=== PATIENT | male | born 1990 | race Caucasian/White ===

== ENCOUNTER 2016-12-23 19:01 | Emergency (ER) | payer SELFPAY ==
[~2016-12-23] VITALS: Ht 172.7 cm; Wt 77.1 kg
[~2016-12-23 19:01] MED LIST: ARPZ30T PO; BSP5T PO; HYDR-757 PO; HYDR1TAB PO; METH4TAB PO; MPR22T TP; NAPR500T PO; PALI9TAB PO; QUET150T PO; QUET200T PO; SULF1TAB35 PO; SULF1TAB38 PO
--- OUTSIDE RECORDS SUMMARY | 2016-12-23 19:06 | XMS REPORT | Continuity of Care Document ---
Author Author [facility] Address Unknown Phone Unavailable Allergies Active Description Code Type Severity Reaction Onset Reported/Identified Relationship to Patient Clinical Status Yes No Known Drug Allergies [id number] Drug Allergy Mild N/A 04/29/2009 Yes ANTIHISTAMINES ANTIHISTAMINES Unknown N/A 08/27/2015 Yes DECONGESTANTS DECONGESTANTS Unknown N/A 08/27/2015 Medications Problems Date Dx Coded Attending Type Code Diagnosis Diagnosed By 07/07/2010 Ot 922.1 07/07/2010 Ot 959.11 07/07/2010 Ot E000.8 07/07/2010 Ot E849.0 07/07/2010 Ot E881.0 07/09/2010 DARCY AHRMAN APRN 922.1 CONTUSION OF TRUNK, CHEST WALL 07/09/2010 DARCY HARMAN APRN E882 ACCIDENTAL FALL FROM OR OUT OF BUILDING OR OTHER STRUCTURE 07/17/2010 Ot 305.00 07/15/2013 TISH CARPENTER DO Ot 682.3 CELLULITIS OF ARM 07/15/2013 TISH CARPENTER DO Ot 782.2 LOCAL SUPRFICIAL SWELLNG 10/23/2014 FRANCESCO ANTOINE APRN Ot 787.01 NAUSEA WITH VOMITING 10/23/2014 FRANCESCO ANTOINE APRN Ot 787.03 VOMITING ALONE 08/27/2015 TISH CARPENTER DO Ot L50.9 URTICARIA, UNSPECIFIED 12/26/2015 DARIO MCCORMICK Ot L03.113 CELLULITIS OF RIGHT UPPER LIMB 03/01/2016 FRANCESCO ANTOINE APRN Ot L03.011 CELLULITIS OF RIGHT FINGER 03/02/2016 FRANCESCO ANTOINE APRN Ot L03.011 CELLULITIS OF RIGHT FINGER 03/04/2016 LUCIAN MCKEON MD Ot F17.210 NICOTINE DEPENDENCE, CIGARETTES, UNCOMPL 03/04/2016 LUCIAN MCKEON MD Ot J45.909 UNSPECIFIED ASTHMA, UNCOMPLICATED 03/04/2016 MIKE SAHU, LUCIAN Larry Ot L03.011 CELLULITIS OF RIGHT FINGER Procedures Results Encounters ACCT No. Visit Date/Time Discharge Status Pt. Type Provider Facility Loc./Unit Complaint [id number] 05/12/2011 14:13:00 05/12/2011 23: 59:59 CLS Outpatient GHAZAL COLEMAN, DARCY Monroy
--- NOTE | 2016-12-23 19:41 | Diagnostic Imaging Report ---
TECHNIQUE: Multiple contiguous axial images were obtained through the chest without the use of intravenous contrast. INDICATION: [place] food gets stuck in the throat or chest while eating approximately 1 hour ago. EXAMINATION: CT of the chest without contrast, 12/23/2016. FINDINGS: There is no pneumothorax. No pericardial or pleural effusions are seen. The osseous structures are intact and unremarkable. Within the visualized esophagus, air is noted throughout the mid and distal esophagus. No definite filling defects are appreciated within the course of visualized esophagus. Mediastinal structures appear unremarkable. Mild increased density in the precarinal region most likely residual thymic tissue. The visualized upper abdominal structures are grossly unremarkable. IMPRESSION: 1. No obstructive lesions visualized on this noncontrast examination. Air, however, does somewhat distend the mid and distal esophagus perhaps due to reflux. 2. Other incidental findings as discussed above. Dictated by: Dictated on workstation # [id number]
--- NOTE | 2016-12-23 19:42 | Diagnostic Imaging Report ---
INDICATION: Patient was eating and felt like food was getting stuck for one hour. COMPARISON STUDIES: None. FINDINGS: Noncontrast CT scan of the neck with coronal reformats demonstrates normal appearance of the airway. Some air is present within the esophagus without any significant dilatation. The pharynx is clear. Cords appear normal. No inflammatory changes are present. There is no abnormal adenopathy. The osseous structures appear normal. IMPRESSION: Essentially normal CT scan of the neck without contrast. Some air is present in the esophagus without dilatation. This is most likely due to normal swallowing. Dictated by: Dictated on workstation # [id number]
--- NOTE | 2016-12-23 19:56 | ED EENT ---
History of Present Illness General Chief Complaint: Foreign Body Stated Complaint: FOREIGN BODY Nursing Triage Note: patient reports eating ribs and believes he might have got a bone stuck in throat. patient reports being able to swallow water without difficulty Source: patient History of Present Illness Time seen by provider: 19:09 Initial Comments STATES HE WAS EATING RIBS AND FELT LIKE SOMETHING GOT STUCK IN HIS THROAT-- OCCURRED 1 HOUR AGO NO DIFFICULTY SWALLOWING WATER OR SALIVA AND NO PROBLEMS BREATHING NO HISTORY OF SIMILAR NO RECENT ILLNESS OR FEVER PCP: [facility] Allergies and Home Medications Allergies Uncoded Allergies: ANTIHISTAMINES (Adverse Reaction, Unknown, 08/27/15) DECONGESTANTS (Adverse Reaction, Unknown, 08/27/15) Home Medications No Active Prescriptions or Reported Meds Review of Systems Constitutional: no symptoms reported Mouth: no symptoms reported Throat: see HPI Respiratory: no symptoms reported Cardiovascular: no symptoms reportedNo chest pain Gastrointestinal: no symptoms reportedNo abdominal pain Musculoskeletal: no symptoms reported Skin: no symptoms reported Neurological: Anxiety Hematologic/Lymphatic: No Symptoms Reported Immunological/Allergic: no symptoms reported Past Rtyjclk-Rjcxlp-Uuvnwi Hx Patient Social History Alcohol Use: Occasionally Uses Recreational Drug Use: Yes (METH, LSD, THC--DENIES IV USE) Smoking Status: Current Everyday Smoker (> 1 PPD) Type Used: Cigarettes 2nd Hand Smoke Exposure: No Recent Foreign Travel: No Contact w/Someone Who Travel: No Recent Infectious Disease Expo: No Recent Hopitalizations: No Immunizations Up To Date Tetanus Booster (TDap): Less than 5yrs Date of Influenza Vaccine: Oct 15, 2012 Seasonal Allergies Seasonal Allergies: Yes Surgeries HX Surgeries: Yes (ABSCESS OF RIGHT THUMB I&D) Surgeries: Appendectomy, Tonsillectomy Respiratory Hx Respiratory Disorders: Yes Respiratory Disorders: Asthma Cardiovascular Hx Cardiac Disorders: No Neurological Hx Neurological Disorders: No Reproductive System Hx Reproductive Disorders: No Sexually Transmitted Disease: No Genitourinary Hx Genitourinary Disorders: No Gastrointestinal Hx Gastrointestinal Disorders: No Musculoskeletal Hx Musculoskeletal Disorders: No Endocrine Hx Endocrine Disorders: No HEENT HX ENT Disorders: No Cancer Hx Cancer: No Psychosocial Hx Psychiatric Problems: Yes Behavioral Health Disorders: Schizophrenia Integumentary HX Skin/Integumentary Disorder: Yes (HIVES-UNKNOWN CAUSE; CELLULITIS/ABSCESSES- -+ MRSA) Blood Transfusions Hx Blood Disorders: No Adverse Reaction to a Blood Tr: No Family Medical History Significant Family History: No Pertinent Family Hx Physical Exam Vital Signs Vital Sign - Last 12Hours 12/23/16 19:12 Temp 98.0 Pulse 112 Resp 18 B/P 122/89 Pulse Ox 99 General Appearance: WD/WN no apparent distress other (ANXIOUS, CONSTANT MOVEMENTS OF BODY AND MOUTH, TALKS VERY RAPIDLY NON-STOP) Mouth/Throat: normal mouth inspection pharynx normalNo foreign body Neck: non-tender full range of motion supple normal inspection Cardiovascular: regular rate, rhythm Respiratory: normal breath sounds Gastrointestinal: non tender soft 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 no motor/sensory deficits alert oriented x 3 Skin: normal color warm/dry tattoos/piercings (MULTIPLE TATTOOS) other ( EXTENSIVE SORES, SCABS, SCARS TO FACE AND TO A LESSER DEGREE FOREARMS) Progress/Results/Core Measures Results/Orders My Orders Orders-TISH CARPENTER DO Ct Chest Wo (12/23/16 19:13) Ct Neck (Soft Tissue) Wo (12/23/16 19:13) Antacid Suspension (Mylanta Suspension (12/23/16 20:00) Lidocaine 2% Viscous 15 Ml (Xylocaine Vi (12/23/16 20:00) Vital Signs/I&O Vital Sign - Last 12Hours 12/23/16 12/23/16 19:12 20:01 Temp 98.0 98.0 Pulse 112 98 Resp 18 18 B/P 122/89 Pulse Ox 99 99 Blood Pressure Mean: [address] NECK SOFT TISSUES--NO ACUTE PROCESS CT CHEST--NO ACUTE PROCESS PER [id number] REPORTS @ 1940 Reviewed: Reviewed by Me Departure Impression Impression: Primary Impression: Globus sensation Additional Impression: POSSIBLE ESOPHAGEAL/LOWER PHARYNGEAL ABRASION Disposition: HOME, SELF-CARE Condition: Stable Departure-Patient Inst. Referrals: NO,LOCAL PHYSICIAN (PCP/Family) Primary Care Physician Patient Instructions: Sore Throat, Adult (DC) Add. Discharge Instructions: LOTS OF CLEAR LIQUIDS TYLENOL AND MOTRIN NEEDED FOR PAIN FOLLOW UP WITH YOUR DR IN 2-3 DAYS IF NO BETTER All discharge instructions reviewed with patient and/or family. Voiced understanding. Scripts No Active Prescriptions or Reported Meds TISH CARPENTER DO Dec 23, 2016 19:56
[2016-12-23 20:01] VITALS: BP 122/89
[2016-12-23] MEDS: LIDOCAINE 2% VISCOUS 15 ML UDC PO ONE ×2 (20:01→20:05)
[2016-12-23] MEDS: ANTACID SUSP 30 ML UDC (MYLANTA) PO ONE ×2 (20:01→20:05)
== END 2016-12-23 20:01 | disposition home or self-care (01) ==
LOC: EDUNIT# 19:01 → ER 19:03
DX: F45.8 Other somatoform disorders (principal); F17.210 Nicotine dependence, cigarettes, uncomplicated
CPT/HCPCS: 70490; 71250; 99282

== ENCOUNTER 2017-08-21 07:21 | Emergency (ER) | payer SELFPAY ==
[~2017-08-21] VITALS: Ht 172.7 cm; Wt 77.1 kg
[2017-08-21] MEDS: NS IV 1000 ML 1,000 ML IV ONE (07:48)
[2017-08-21] MEDS: ONDANSETRON 4 MG/2 ML (SDV) Z0FRAN IVP ONE (07:48)
[2017-08-21] MEDS: FAMOTIDINE 20MG/2ML IV (PEPCID) IVP ONE (07:48)
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
[2017-08-21 08:07] LABS: BASOPHILS % (AUTO) 0 % (0-10); EOSINOPHILS # (AUTO) 0.3 10^3/uL (0.0-0.3); EOSINOPHILS % (AUTO) 3 % (0-10); LYMPHOCYTES # (AUTO) 1.4 X 10^3 (1.0-4.0); LYMPHOCYTES % (AUTO) 13 % (12-44); MEAN CORPUSCULAR HEMOGLOBIN 31 PG (25-34); MEAN CORPUSCULAR HGB CONC 34 G/DL (32-36); MEAN CORPUSCULAR VOLUME 91 FL (80-99); MEAN PLATELET VOLUME 10.7 FL (7.4-10.4); MONOCYTES # (AUTO) 1.4 X 10^3 (0.0-1.0); MONOCYTES % (AUTO) 13 % (0-12); NEUTROPHILS # (AUTO) 7.6 X 10^3 (1.8-7.8); NEUTROPHILS % (AUTO) 71 % (42-75); PLATELET COUNT 209 10^3/uL (130-400); RED BLOOD COUNT 4.92 10^6/uL (4.35-5.85); RED CELL DISTRIBUTION WIDTH 12.1 % (10.0-14.5); WHITE BLOOD COUNT 10.8 10^3/uL (4.3-11.0)
[2017-08-21 08:25] LABS: ALANINE AMINOTRANSFERASE 15 U/L (0-55); ALBUMIN 4.2 GM/DL (3.2-4.5); ALCOHOL < 10 MG/DL (<10); ANION GAP 9 MMOL/L (5-14); ASPARTATE AMINO TRANSFERASE 20 U/L (5-34); BLOOD UREA NITROGEN 7 MG/DL (7-18); BUN/CREATININE RATIO 7; CALCIUM 9.6 MG/DL (8.5-10.1); CARBON DIOXIDE 25 MMOL/L (21-32); CHLORIDE 104 MMOL/L (98-107); CREATININE SERUM 0.95 MG/DL (0.60-1.30); GFR ESTIMATED > 60; GLUCOSE 90 MG/DL (70-105); LIPASE 13 U/L (8-78); MAGNESIUM 2.4 MG/DL (1.8-2.4); POTASSIUM 4.4 MMOL/L (3.6-5.0); SODIUM 138 MMOL/L (135-145); TOTAL PROTEIN 8.3 GM/DL (6.4-8.2)
--- NOTE | 2017-08-21 08:28 | Diagnostic Imaging Report ---
EXAMINATION: CHEST (PA AND LATERAL) CLINICAL INDICATION: 27-year-old male, cough and shortness of breath for 3 days. COMPARISON: July 07, 2010. FINDINGS: Heart size and mediastinal contours are unremarkable. There is no identified pneumothorax. There is no pleural effusion. There is no identified focal airspace consolidation. IMPRESSION: No identified acute cardiopulmonary abnormality. Dictated by: Dictated on workstation # [id number]
[2017-08-21] MEDS ORDERED: FLUT9.9S NSEACH (09:06)
[2017-08-21] MEDS ORDERED: AMOX500C2 PO (09:06)
[2017-08-21] MEDS ORDERED: ONDA4TAB8 SL (09:06)
[2017-08-21] MEDS ORDERED: FAMO-119 PO (09:06)
[2017-08-21] MEDS ORDERED: NYST1000 PO (09:08)
[2017-08-21] MEDS: FLUCONAZOLE 150 MG TABLET (ED ONLY) PO ONE (09:15)
[2017-08-21 09:20] VITALS: BP 145/89
[2017-08-23 14:58] LABS: HIV AG AB SCREEN Non-Reactive (Non-Reactive)
== END 2017-08-21 09:20 | disposition home or self-care (01) ==
LOC: EDUNIT# 07:21 → ER 07:24
DX: J01.90 Acute sinusitis, unspecified (principal); J02.9 Acute pharyngitis, unspecified; B37.0 Candidal stomatitis; F10.20 Alcohol dependence, uncomplicated; R11.2 Nausea with vomiting, unspecified; J45.909 Unspecified asthma, uncomplicated; F20.9 Schizophrenia, unspecified; F17.210 Nicotine dependence, cigarettes, uncomplicated; Z86.14 Personal history of Methicillin resistant Staphylococcus aureus infection; Z90.49 Acquired absence of other specified parts of digestive tract; Z90.89 Acquired absence of other organs
CPT/HCPCS: 36415; 71020; 80053; 80074; 80320; 83690; 83735; 85025; 86703; 87430

== ENCOUNTER 2018-02-24 14:18 | Emergency (ER) | payer SELFPAY ==
[~2018-02-24] VITALS: Ht 172.7 cm; Wt 79.4 kg
[~2018-02-24 14:18] MED LIST changes: +AMOX500C2 PO; +FAMO-119 PO; +FLUT9.9S NSEACH; +NAPR-1071 PO; -NAPR500T PO; +NYST1000 PO; +ONDA4TAB8 SL
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
[2018-02-24] MEDS ORDERED: TETANUS,DIPTH,PERTUSS P/F (BOOSTRIX) 0.5 ML VIAL IM ONE (15:00)
[2018-02-24 15:08] VITALS: BP 135/84
== END 2018-02-24 15:08 | disposition home or self-care (01) ==
LOC: EDUNIT# 14:18 → ER 14:20
DX: S91.311A Laceration without foreign body, right foot, initial encounter (principal); J45.909 Unspecified asthma, uncomplicated; F20.9 Schizophrenia, unspecified; Z86.14 Personal history of Methicillin resistant Staphylococcus aureus infection; Z88.8 Allergy status to other drugs, medicaments and biological substances; Z79.51 Long term (current) use of inhaled steroids; Z87.891 Personal history of nicotine dependence; Z90.49 Acquired absence of other specified parts of digestive tract; Z90.89 Acquired absence of other organs; W26.8XXA Contact with other sharp object(s), not elsewhere classified, initial encounter
CPT/HCPCS: 90471; 90715

== ENCOUNTER 2018-05-22 16:27 | Emergency (ER) | payer SELFPAY ==
[~2018-05-22] VITALS: Ht 172.7 cm; Wt 79.4 kg
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
[2018-05-22 17:17] VITALS: BP 117/78
== END 2018-05-22 17:22 | disposition home or self-care (01) ==
LOC: EDUNIT# 16:27 → ER 16:29
DX: T63.441A Toxic effect of venom of bees, accidental (unintentional), initial encounter (principal); K52.9 Noninfective gastroenteritis and colitis, unspecified; F17.210 Nicotine dependence, cigarettes, uncomplicated; F20.9 Schizophrenia, unspecified; Z88.8 Allergy status to other drugs, medicaments and biological substances; Z90.49 Acquired absence of other specified parts of digestive tract; Z90.89 Acquired absence of other organs
CPT/HCPCS: 99281

== ENCOUNTER 2019-12-20 09:40 | Emergency (ER) | payer SELFPAY ==
[~2019-12-20] VITALS: Ht 170 cm; Wt 73.3 kg
[~2019-12-20 09:40] MED LIST changes: +HYDR-4226 PO; -HYDR-757 PO
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
[2019-12-20] MEDS ORDERED: ONDANSETRON 4 MG (ZOFRAN) ORAL DISSOLVE TAB PO ONE (10:00)
[2019-12-20 10:05] LABS: HEMOGLOBIN 17.5 G/DL (13.3-17.7); MEAN PLATELET VOLUME 10.9 FL (7.4-10.4); RED CELL DISTRIBUTION WIDTH 13.6 % (10.0-14.5)
[2019-12-20 10:40] LABS: ALANINE AMINOTRANSFERASE 25 U/L (0-55); ALKALINE PHOSPHATASE 87 U/L (40-136); BILIRUBIN,TOTAL 0.7 MG/DL (0.1-1.0); BUN/CREATININE RATIO 13; CALCIUM 10.4 MG/DL (8.5-10.1); CARBON DIOXIDE 23 MMOL/L (21-32); CHLORIDE 101 MMOL/L (98-107); CREATININE SERUM 2.76 MG/DL (0.60-1.30); GFR ESTIMATED 28; GLUCOSE 84 MG/DL (70-105); LIPASE 19 U/L (8-78); POTASSIUM 4.2 MMOL/L (3.6-5.0); SODIUM 136 MMOL/L (135-145); TOTAL PROTEIN 8.6 GM/DL (6.4-8.2)
[2019-12-20] MEDS ORDERED: NS IV 1000 ML 1,000 ML IV SCH (10:46)
[2019-12-20] MEDS ORDERED: ONDA4TAB11 PO (10:53)
[2019-12-20 10:59] VITALS: BP 125/84
== END 2019-12-20 10:59 | disposition home or self-care (01) ==
LOC: EDUNIT# 09:40 → ER 09:42
DX: K52.9 Noninfective gastroenteritis and colitis, unspecified (principal); N17.9 Acute kidney failure, unspecified; E86.0 Dehydration; J45.909 Unspecified asthma, uncomplicated; Z88.8 Allergy status to other drugs, medicaments and biological substances; Z79.51 Long term (current) use of inhaled steroids
CPT/HCPCS: 36415; 80053; 83690; 85027; 87804

== ENCOUNTER 2020-12-15 09:20 | Emergency (ER) | payer SELFPAY ==
[~2020-12-15] VITALS: Ht 172.7 cm; Wt 72.7 kg
[~2020-12-15 09:20] MED LIST changes: +ONDA4TAB11 PO
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
--- NOTE | 2020-12-15 09:45 | NUR ---
PATIENT LAUGHING AND TALKING WITH PPD.
--- NOTE | 2020-12-15 10:06 | Diagnostic Imaging Report ---
EXAMINATION: Left ribs unilateral 2 view HISTORY: Trauma COMPARISON: None available. FINDINGS: No rib fracture is seen. The left lung is clear. No pneumothorax. IMPRESSION: 1. No left-sided rib fracture identified. Dictated by: Dictated on workstation # [id number]
[2020-12-15 10:15] VITALS: BP 143/86
--- NOTE | 2020-12-15 10:15 | NUR ---
PATIENT DECIDED HE WANTED TO LEAVE WAS SIGNED AMA PER DR WANG.
--- NOTE | 2020-12-15 10:18 | Diagnostic Imaging Report ---
EXAMINATION: CT head, face and CT cervical spine without contrast. TECHNIQUE: Multiple contiguous axial images were obtained through the face, brain and cervical spine without the use of intravenous contrast. Sagittal and coronal reformations through the cervical spine were then performed. All CT scans use one or more of the following dose optimizing techniques: automated exposure control, MA and/or KvP adjustment based on a patient size and exam type, or iterative reconstruction. HISTORY: Trauma COMPARISON: None available. FINDINGS: The henriquez-white matter differentiation is normal. No mass effect or midline shift. The ventricles are normal in size and configuration. Basilar cisterns are patent. There are no intra- or extra-axial fluid collections. There is no intracranial hemorrhage. The orbits are normal. Paranasal sinuses are normal. Mastoid air cells are clear. No soft tissue abnormality is seen. No osseus lesions or fractures are seen. No fracture is seen in the face. The nasal bones are normal. Mandible and maxillae are normal. Zygomatic arches are normal. Pterygoid plates are normal. No soft tissue abnormality is seen. The alignment of the cervical spine is normal. No fracture is seen. Vertebral body heights are normal. The craniocervical junction is normal. There is mild degenerative disease in the cervical spine. Osteophyte complex is present at C5-C6. There is no spinal canal stenosis. No soft tissue abnormality is seen in the neck. Limited views of the superior thorax are normal. IMPRESSION: 1. No acute intracranial abnormality. 2. No cervical spine fracture. 3. No fracture in the face. Dictated by: Dictated on workstation # [id number]
== END 2020-12-15 10:17 | disposition left against medical advice (07) ==
LOC: EDUNIT# 09:20 → ER 09:22
DX: S05.12XA Contusion of eyeball and orbital tissues, left eye, initial encounter (principal); T68.XXXA Hypothermia, initial encounter; X31.XXXA Exposure to excessive natural cold, initial encounter; F17.210 Nicotine dependence, cigarettes, uncomplicated; F17.290 Nicotine dependence, other tobacco product, uncomplicated; Z88.8 Allergy status to other drugs, medicaments and biological substances; Y04.2XXA Assault by strike against or bumped into by another person, initial encounter
CPT/HCPCS: 70450; 70486; 71100; 72125